=== PATIENT | female | born 1975 | race Caucasian/White ===

== ENCOUNTER 2020-03-30 11:26 | Day surgery (SDC) | payer OTHER ==
[~2020-03-30] VITALS: Ht 167.6 cm; Wt 57.3 kg
[~2020-03-30 11:26] MED LIST: ETON1VAG VG
[2020-03-30 12:06] LABS: HCG UR SG 1.027 (1.003-1.030)
[2020-03-30 12:08] VITALS: BP 136/87
[2020-03-30] MEDS ORDERED: LACTATED RINGERS 1,000 ML IV SCH (12:14)
[2020-03-30] MEDS ORDERED: CHLORHEXIDINE 15 ML UDC ONE (12:25)
[2020-03-30] MEDS ORDERED: BUPIVACAINE/PF 0.25% ONE (12:28)
[2020-03-30] MEDS ORDERED: ACETAMINOPHEN 500 MG TABLET PO ONE (12:30)
[2020-03-30] MEDS ORDERED: CHLORHEXIDINE 15 ML UDC MM ONE (12:30)
[2020-03-30] MEDS ORDERED: DIAZEPAM 5 MG TABLET PO ONE (12:30)
[2020-03-30] MEDS ORDERED: MIDAZOLAM 1 MG/ML, 2ML ONE (12:33)
[2020-03-30] MEDS ORDERED: FENTANYL PF 100 MCG/2ML ONE (12:34)
[2020-03-30] MEDS ORDERED: KETAMINE 10 MG/ML, 20ML ONE (12:36)
[2020-03-30] MEDS ORDERED: PROPOFOL 100 ML ONE (12:39)
[2020-03-30] MEDS ORDERED: MEPERIDINE/PF 25MG/0.5ML IVPush PRN (13:00)
[2020-03-30] MEDS ORDERED: LORazepam 2 MG/ML, 1ML IVPush PRN (13:00)
[2020-03-30] MEDS ORDERED: FENTANYL PF 100 MCG/2ML IV PRN (13:00)
[2020-03-30] MEDS ORDERED: PROMETHAZINE 25 MG/ML, 1ML IVPush PRN (13:00)
[2020-03-30] MEDS ORDERED: OXYcodone 5 MG/5 ML ORAL.SOL UDC PO PRN (13:00)
[2020-03-30] MEDS ORDERED: ONDANSETRON 2MG/ML, 2ML IVPush PRN (13:00)
[2020-03-30] MEDS ORDERED: ACETAMINOPHEN 325 MG TABLET PO PRN (13:00)
[2020-03-30] MEDS ORDERED: HYDROmorphone 1 MG/ML, 1ML INJ IVPush PRN (13:00)
[2020-03-30] MEDS ORDERED: PROMETHAZINE 25 MG SUPP PR PRN (13:00)
[2020-03-30] MEDS ORDERED: ONDANSETRON 2MG/ML, 2ML ONE (13:11)
[2020-03-30] MEDS ORDERED: DEXAMETHASONE 4 MG/ML, 1ML ONE (13:11)
== END 2020-03-30 16:00 | disposition home or self-care (01) ==
LOC: OUT 11:26
PROVIDERS: ATTEND Specialist
DX: K64.4 Residual hemorrhoidal skin tags (principal); N89.9 Noninflammatory disorder of vagina, unspecified; N87.9 Dysplasia of cervix uteri, unspecified; L91.8 Other hypertrophic disorders of the skin; N90.89 Other specified noninflammatory disorders of vulva and perineum; F17.210 Nicotine dependence, cigarettes, uncomplicated; K21.9 Gastro-esophageal reflux disease without esophagitis; Z20.828 Contact with and (suspected) exposure to other viral communicable diseases; Z79.899 Other long term (current) drug therapy; Z72.89 Other problems related to lifestyle
CPT/HCPCS: 46220; 57100; 81025; 87635; 88305; J1100; J2250; J2405; J2704; J3010; J3490; J7120